=== PATIENT | male | born 1955 | race Caucasian/White ===

== ENCOUNTER 2016-10-08 08:31 | Inpatient (IN) | payer OTHER ==
[~2016-10-08] VITALS: Ht 195.6 cm; Wt 126.0 kg
[~2016-10-08 08:31] MED LIST: ATOR40TA16 PO; LEVO200T4 PO; OXYC1TAB63 PO
[2016-10-08] MEDS ORDERED: ceFAZolin 2 GM PREMIX 50 ML IV SCH (09:00)
[2016-10-08] MEDS ORDERED: VANCOMYCIN 1000 MG/NS 250 ML (for <70 kg) IV SCH ×2 (09:00)
[2016-10-08] MEDS ORDERED: POVIDONE IODINE 7.5% SCRUB 118 ML BOTTLE TOPICAL SCH (09:00)
[2016-10-08] MEDS ORDERED: SODIUM CHLORID 0.9% 500 ML IV PRN (10:15)
[2016-10-08] MEDS ORDERED: POVIDONE IODINE 5% (ANTISEPSIS KIT) 4 APPLICATIONS EACH NARE PRN (10:15)
[2016-10-08] MEDS ORDERED: CHLORHEXIDINE GLUCONATE 2 % 1 PACK (2 CLOTHS) TOPICAL PRN (10:15)
[2016-10-08] MEDS ORDERED: INSULIN HUMAN REGULAR 1,000 UNITS/10 ML VIAL SQ PRN (10:15)
[2016-10-08] MEDS ORDERED: METOPROLOL TARTRATE 25 MG TAB PO PRN (10:15)
[2016-10-08] MEDS ORDERED: LACTATED RINGER'S 1000 ML IV PRN (10:15)
[2016-10-08] MEDS ORDERED: PRED1 PO (10:27)
[2016-10-08] MEDS ORDERED: GENTAMICIN SULFATE 80 MG/2 ML VIAL ONE (11:45)
[2016-10-08] MEDS ORDERED: BUPIVACAINE/EPINEPHRINE 0.25% 50 ML VIAL ONE (11:45)
[2016-10-08] MEDS ORDERED: LACTATED RINGER'S 1000 ML INJ 1,000 ML IV ONE (12:00)
[2016-10-08] MEDS ORDERED: NORMOSOL R INJ 1,000 ML IV ONE (12:00)
[2016-10-08] MEDS ORDERED: ONDANSETRON HCL 4 MG/2 ML VIAL IV PUSH ONE (12:00)
[2016-10-08] MEDS ORDERED: PHENYLEPH/NS 1000 MCG/10 ML SYR IV ONE (12:00)
[2016-10-08] MEDS ORDERED: ePHEDrine/NS 25 MG/5 ML SYR IV ONE (12:00)
[2016-10-08] MEDS ORDERED: PROPOFOL 200 MG/20 ML AMP IV ONE (12:00)
[2016-10-08] MEDS ORDERED: MIDAZOLAM HCL 2 MG/2 ML VIAL ONE (13:10)
[2016-10-08] MEDS ORDERED: FAMOTIDINE 20 MG/2 ML VIAL ONE (13:11)
[2016-10-08] MEDS ORDERED: ACETAMINOPHEN/HYDROcodone 325 MG/7.5 MG TAB PO PRN (15:45)
[2016-10-08] MEDS ORDERED: MORPHINE SULFATE 4 MG/ML INJ IV PUSH PRN (15:45)
[2016-10-08] MEDS ORDERED: SODIUM CHLORIDE 0.9% FLUSH 5 ML FLUSH IVF PRN (15:45)
[2016-10-08] MEDS ORDERED: BISACODYL 10 MG SUPP RECTAL PRN (15:45)
[2016-10-08] MEDS ORDERED: ONDANSETRON HCL 4 MG/2 ML VIAL IV PRN (15:45)
[2016-10-08] MEDS ORDERED: Post-op Orders (for Pharmacy) MISC XX ONE (15:45)
--- NOTE | 2016-10-08 15:48 | PD.OP ---
cc: Redd Morgan MD; Dennis Morgan MD Operative Report Date of Surgery: Oct 08, 2016 Preoperative Diagnosis: Herniated nucleus pulposus C6 7, left. Left C7 radiculopathy Postoperative Diagnosis: Same Procedure: Anterior cervical discectomy and decompression with bilateral foraminotomies, C6 7. Resection herniated nucleus pulposus C6 7, left. Left anterior iliac crest bone graft Anesthesia: Gen. Surgeon: Dennis Morgan Senior Enterprise Architect(s): NILSA Harley Operation and Findings: EBL: 50 cc INDICATIONS: Patient is a 61-year-old male with severe left arm pain and weakness. Investigative studies shows evidence of a large sequestered disc herniation to the left extending into the foramen at C6 7. He presents for surgical treatment NOTE: Gloria Harley PA-C was present for the entire surgical procedure as my billing and accounting staff assistant. In my medical opinion her skill and care was necessary for proper management of this patient PROCEDURE: The patient was brought to the operating room and anesthetized in the supine position. This patient was positioned supine on the radiolucent table. All pressure points were protected in the anterior cervical spine and iliac crest was scrubbed with alcohol followed by Hibiclens followed by ChloraPrep. A timeout was done and antibiotics were given within 1 hour time window. Lateral radiographic images were used identifying the proper level. A right anterior incision was made in line with skin creases. The platysma was opened in line with the incision. Deep dissection continued in the interval between the carotid sheath and the esophagus. The longus-coli muscles were lifted on both sides and retractors were positioned allowing good exposure. Lateral radiographic images were used to identify the proper level. Crete style interosseous pins were placed at C6 and C7 allowing exposure to that level. The microscope was rolled into the field. A total discectomy was accomplished and posterior osteophytes were removed. The posterior longitudinal ligament and annulus was taken down. Bilateral foraminotomies were accomplished. The endplates were squared up anticipating later bone grafting. A blunt probe could be placed out each foramen without evidence of nerve root compromise. The left iliac crest was approached. A small stab incision was made allowing percutaneous access to the anterior iliac crest. Multiple cores of cancellous bone were harvested and taken to the back table to be used for later bone grafting. The wound was irrigated anesthetized and closed with 4-0 Vicryl followed by Dermabond. The case was turned over to Dr. Redd Morgan for fusion and instrumentation per his dictation. FINDINGS: There was evidence of a large disc herniation extending to the left and into the foramen at C6 7. The decompression was very satisfactory. There was no significant central stenosis or right-sided foraminal stenosis. NOTE: This surgery was performed in 2 parts. The first part was the neurosurgical decompression performed under the variable power stereo microscope by the undersigned in addition to the bone graft. The second portion of the surgery will be performed by the orthopedic spine component by co -surgeon, Dr. Redd Morgan for the anterior fusion with interbody cage and anterior plate. The skill of 2 surgeons was necessary to perform distinct separate procedural services as dictated above and dictated in the following operative note by Dr. Redd Morgan. Dennis Morgan MD Oct 08, 2016 15:48
[2016-10-08] MEDS ORDERED: HYDR-3580 PO (15:50)
--- NOTE | 2016-10-08 16:31 | HHI.PR ---
Immediate Post Op Note Procedure Date: Oct 08, 2016 Pre Op Diagnosis: (1) Herniated cervical disc Post Op Diagnosis: (1) Herniated cervical disc Surgeon: Redd Morgan M.D. Assembler Lay Ups(s): Chitra Pro PA-C Procedure: C6-7 ACDF Complications: none Estimated blood loss: 50 cc Anesthesia: General Drains: None Patient to: PACU Patient Condition: Good Implant/Devices: SEE IMPLANT LOG (if applicable) Date/Time of Procedure: SEE SURGICAL CARE RECORD Chitra Pro Oct 08, 2016 16:31
[2016-10-08] MEDS ORDERED: fentaNYL CITRATE 250 MCG/5 ML AMP ONE (16:47)
[2016-10-08] MEDS: LACTATED RINGER'S 1000 ML INJ 1,000 ML IV SCH (17:00)
[2016-10-08] MEDS ORDERED: *morphine SULFATE 8 MG/ML PERIprocedure ONLY ONE (17:40)
[2016-10-08] MEDS: ACETAMINOPHEN/HYDROcodone 325 MG/7.5 MG TAB PO PRN ×2 (18:26→22:42)
--- NOTE | 2016-10-08 18:31 | RADRPT ---
EXAM DATE/TIME: 10/08/2016 16:06 [facility] COMPARISON: No previous studies available for comparison. INDICATIONS : C6-C7 anterior diskectomy, laminectomy, and anterior fusion. MEDICAL HISTORY : None. SURGICAL HISTORY : None. ENCOUNTER: Initial ACUITY: 1 day PAIN SCORE: Non-responsive. LOCATION: c-spine FINDINGS: 3 spot fluoroscopic images obtained in the operating room during a procedure demonstrate anterior cer vical plate and screws at C6-C7. CONCLUSION: Findings indicative of ACDF at C6-C7. Claudio Santamaria MD on October 08, 2016 at 18:29 Board Certified Radiologist. This report was verified electronically.
[2016-10-08 20:19] VITALS: BP 142/85; PULSE 56; RESP 16; TEMP 96.1; O2SAT 97
[2016-10-08] MEDS ORDERED: DO NOT ADM ANY ANTICOAGULANT DRUGS PRN (20:30)
[2016-10-08] MEDS: SODIUM CHLORIDE 0.9% FLUSH 5 ML FLUSH IVF SCH (22:42)
[2016-10-09] VITALS: BP 132/79; PULSE 68; RESP 17; TEMP 97.8; O2SAT 92
[2016-10-09] MEDS: ACETAMINOPHEN/HYDROcodone 325 MG/7.5 MG TAB PO PRN ×3 (00:38→11:41)
[2016-10-09 04:09] VITALS: BP 140/75; PULSE 69; RESP 16; TEMP 96.7; O2SAT 94
[2016-10-09] MEDS: LACTATED RINGER'S 1000 ML INJ 1,000 ML IV SCH (04:14)
[2016-10-09 07:49] VITALS: BP 123/65; PULSE 69; RESP 18; TEMP 96.2; O2SAT 92
--- NOTE | 2016-10-09 07:55 | HHI.DCPOC ---
Discharge Care Plan Diagnosis: (1) Cervical spinal stenosis (2) Cervical radiculopathy at C6 Your Health Problems Are: Incision/Drains Swelling Goals to Promote Your Health * To prevent worsening of your condition and complications * To maintain your health at the optimal level Directions to Meet Your Goals Take your medications as prescribed Follow your dietary instruction Follow activity as directed Keep your appointments as scheduled Take your immunizations and boosters as scheduled If your symptoms worsen call your PCP, if no PCP go to Urgent Care Center or Emergency Room Smoking is Dangerous to Your Health. Avoid second hand smoke Call the 24-hour hour crisis hotline for domestic abuse at Yumi Patten Oct 09, 2016 07:55
--- NOTE | 2016-10-09 07:57 | HHI.DS ---
Discharge Summary Admission Date Oct 08, 2016 at 17:54 Discharge Date: Oct 09, 2016 Admitting Diagnosis see below Diagnosis: (1) Cervical spinal stenosis Diagnosis: Principal ICD Codes: M48.02 - Spinal stenosis, cervical region (2) Cervical radiculopathy at C6 Diagnosis: Principal ICD Codes: M54.12 - Cervical radiculopathy at C6 Status: Acute Procedures Anterior cervical decompression and fusion C67, bone graft Brief History This is a 61 year old male patient with a 2-3 month history of neck and left shoulder and arm pain. He states that on 08/13/16 he was up on a ladder working on his boat. He slipped and caught himself with his left arm. He began noticing increased left neck and shoulder pain a week later. This increased rapidly. He tried using ice and percocet but did not get relief. He presented to the office of Dr. John Diaz. Xrays were taken. He was given a shoulder injection and prescribed gabapentin and a medrol dose susu. He did not get relief so an MRI cervical spine was ordered. This showed a large disc herniation C67. He was referred to Dr. Dennis Morgan. Surgical treatment was recommended in the form of ACDF C67. The patient agreed and presents for the above treatment. Hospital Course Surgical treatment was performed on the day of admission without complication. The patient recovered well in PACU and was transferred to the orthopaedic floor. Pain was controlled with IV and oral medications. He was compliant with his cervical collar and all restrictions. After 1 day he was found to be stable and discharged home. 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 Pt Condition on Discharge: Stable Discharge Disposition: Discharge Home Discharge Instructions Diet Instructions: As Tolerated, No Restrictions, Soft Diet, High Fiber Diet Activities You Can Perform: Weight Bearing as Miah, See Additionl Instruction Activities to Avoid: Strenuous Activity Additional Activity Instruc.: Full-time brace for 3 weeks New Medications: Hydrocodone-Acetaminophen (Hydrocodone-Acetaminophen) 7.5-325 mg Tab 1 TAB PO Q4H PRN for pain, #50 TAB Continued Medications: Atorvastatin (Atorvastatin) 40 Mg Tab 40 MG PO HS for Cholesterol Management, #30 TAB 3 Refills Levothyroxine (Levothyroxine) 200 Mcg Tab 200 MCG PO DAILY for Thyroid, #30 TAB 3 Refills Oxycodone-Acetaminophen (Oxycodone-Acetaminophen) 5-325 mg Tab 1 TAB PO Q4H PRN for PAIN, TAB 0 Refills Prednisone (Prednisone) 1 Mg Tab 1 MG PO DAILY, TAB 0 Refills dosage unknown Yumi Patten Oct 09, 2016 07:57
--- NOTE | 2016-10-09 08:00 | PD.ORT.PN ---
Subjective Subjective Remarks Doing well this morning. No new arm pain. Left arm is doing much better. He is very pleased. His throat is sore but can swallow easily. No other complaints. Questions about surgery. Objective Vitals Vital Signs Date Time Temp Pulse Resp B/P (MAP) Pulse Ox O2 Delivery O2 Flow Rate FiO2 10/09/16 07:49 96.2 69 18 123/65 (84) 92 10/09/16 04:09 96.7 69 16 140/75 (96) 94 10/09/16 00:00 97.8 68 17 132/79 (96) 92 10/08/16 20:19 96.1 56 16 142/85 (104) 97 10/08/16 17:55 97.5 55 16 152/87 (108) 95 Room Air 10/08/16 17:45 54 16 157/89 (111) 98 Nasal Cannula 2 10/08/16 17:30 53 16 153/87 (109) 97 Nasal Cannula 2 10/08/16 17:15 52 16 150/82 (104) 96 Nasal Cannula 2 10/08/16 17:00 54 16 145/76 (99) 95 Nasal Cannula 2 10/08/16 16:45 59 16 142/74 (96) 94 Nasal Cannula 2 10/08/16 16:40 97.4 67 17 131/79 (96) 100 Simple Mask 8 10/08/16 10:30 97.8 65 18 144/89 (107) 95 I/O 10/08/16 10/08/16 10/08/16 10/09/16 10/09/16 10/09/16 07:00 15:00 23:00 07:00 15:00 23:00 Intake Total 250 ml 2930 ml 480 ml Output Total 500 ml Balance 250 ml 2430 ml 480 ml Intake Oral 600 ml 480 ml IV Total 250 ml 80 ml Other 2250 ml Output Urine Total 450 ml Estimated Blood Loss 50 ml # Voids 1 1 2 Procedures Anterior cervical decompression and fusion C67, bone graft Objective Remarks Sitting up in bed NAD VSS C/S Anterior dressing c/d/i, no drainage, minimal swelling, no erythema +motor brachiorad, +sens, +nvi Assessment & Plan Ortho Post Op Day #: 1 Problem List: (1) Cervical spinal stenosis ICD Codes: M48.02 - Spinal stenosis, cervical region (2) Cervical radiculopathy at C6 ICD Codes: M54.12 - Cervical radiculopathy at C6 Status: Acute Assessment and Plan pod#1 s/p ACDF C67, bone graft Doing well. Throat sore but left arm improved. Ok to d/c home today. Dry dressing changes daily. Ok to shower after 72 hours. Continues cervical collar x3 weeks. PO pain meds as needed. F/U in 2 weeks as scheduled. Yumi Patten Oct 09, 2016 08:00
[2016-10-09] MEDS: SODIUM CHLORIDE 0.9% FLUSH 5 ML FLUSH IVF SCH (08:50)
[2016-10-09] MEDS ORDERED: MULTIVITAMINS/MINERALS THERAPEUTIC TAB PO SCH (09:00)
[2016-10-09] MEDS ORDERED: DOCUSATE SODIUM 100 MG CAP PO SCH (09:00)
[2016-10-09 11:39] VITALS: BP 138/63; PULSE 66; RESP 18; TEMP 95.8; O2SAT 93
[2016-10-09 12:57] VITALS: O2SAT 93
--- NOTE | 2016-10-10 23:17 | MP ---
[facility] fax [phone] DATE OF SURGERY 06/12/16 PREOPERATIVE DIAGNOSIS 1. C6-7 herniated nucleus pulposus. 2. Left-sided cervical radiciulitis, left upper extremity weakness. POSTOPERATIVE DIAGNOSIS 1. C6-7 herniated nucleus pulposus. 2. Left-sided cervical radiciulitis, left upper extremity weakness. PROCEDURE C6-7 anterior body fusion, C6-7 spinet ACC anterior cervical cage, C6-7 spinet Rauscher anterior spinal instrumentation. SURGEON Leticia Morgan MD GLOBAL LOGISTICS MANAGER MICHAEL Naranjo. ESTIMATED BLOOD LOSS 150 mL for entire case. ANESTHESIA General CONDITION Stable PLAN OF ACTIVITY As per orders DRAINS None PROCEDURE IN DETAIL My autopsy assistant Chitra Pro, MICHAEL, was present for entire surgical case. She was medically necessary for entire case because of the complexity of the case and to facilitate the performance of the procedure. The LEVELMAN at the back table is not a skill set for this case, manipulate the instruments e.g. multiple different types, soft tissue retractors, trial implants and permanent implants. Dr. Dennis Morgan and myself were cosurgeons. Dr. Dennis Morgan performed the neuro decompressive portion of the procedure by performing a C6-7 anterior cervical diskectomy, anterior decompression using operative microscope and a left anterior iliac crest bone grafting. I performed the orthopedic fusion and stabilization of the spinal procedure. The patient was brought into the operating room, had satisfactory general endotracheal anesthesia by the Department of Anesthesia. Dr. Dennis Morgan performed a right transverse anterior cervical spine surgery, performed anterior cervical diskectomy, anterior decompression at C6-7. Also performed a left iliac crest bone grafting. I was not present for his portion of the procedure and it is well described in the operative note. The endplates at C6-7 were prepared for fusion. The Hyaline cartilage was removed using angled curettes and burs. A 7 10x12 ACC cage was placed in the interspace. The anterior iliac crest bone graft with interbody fusion with fluoroscopic guidance placed in the interspace. The anterior osteophytes were removed using angled curettes and burs with different types of rongeurs. A 25 mm length spinet Rauscher plate was used for anterior spinal instrumentation. Two spine tacks were used for appropriate positioning. It was checked under fluoroscopic guidance stable and found to be stable and satisfactory, two screws were used in the vertebral body of C6 and C7. Each screw was drilled, screws were inserted. Each screw head was appropriately locked to the plate. Fluoroscopic guidance confirmed satisfactory pinning of bone graft at C6-7 and satisfaction position of ACC cage at C6-7 and satisfactory position anterior spinal instrumentation at C6-7. The wound was irrigated with copious amounts of saline. The wound itself was dry and the wound was closed in routine manner. It was closed with 3-0 Vicryl suture and skin approximated with subcuticular 4-0 Vicryl. Sterile dressing applied. The patient placed in [place] cervical orthosis. The patient tolerated the procedure well and went to recovery room stable and satisfactory condition. MD KEISHA Weller/ /4:29 PM /10:56 PM ANDREW
[2016-11-30] MEDS ORDERED: ATOR40TA16 PO (16:33)
== END 2016-10-09 14:04 | disposition home or self-care (01) | DRG 473 ==
LOC: HSDI 08:31 → INTOOBSV 08:31 → OBSVTOIN 17:54 → N06B 18:13
PROVIDERS: ADMIT Orthopaedic Surgery Orthopaedic Surgery of the Spine; ATTEND Orthopaedic Surgery Orthopaedic Surgery of the Spine
PROC: 0RT30ZZ Resection of Cervical Vertebral Disc, Open Approach (ICD-10-PCS; 2016-10-08)
PROC: 0QB33ZZ Excision of Left Pelvic Bone, Percutaneous Approach (ICD-10-PCS; 2016-10-08)
PROC: 0RG10A0 Fusion of Cervical Vertebral Joint with Interbody Fusion Device, Anterior Approach, Anterior Column, Open Approach (ICD-10-PCS; principal; 2016-10-08 13:16)
DX: M50.123 Cervical disc disorder at C6-C7 level with radiculopathy (principal); M48.02 Spinal stenosis, cervical region; M25.78 Osteophyte, vertebrae
CPT/HCPCS: 72040; 76000; 94150; C1713; J0690; J1580; J2250; J2270; J2370; J2405; J3010; J3370; J7050; J7120